=== PATIENT | male | born 2000 | race Caucasian/White ===

== ENCOUNTER 2020-06-20 12:26 | Emergency (ER) | payer OTHER ==
[2020-06-20 12:35] VITALS: RESP 18
--- NOTE | 2020-06-20 12:56 | ED ---
General Adult HPI - General Source: patient, family, RN notes reviewed, old records reviewed Mode of arrival: ambulatory Limitations: no limitations <Valentino Polanco - Last Filed: 06/20/20 14:37> <Matt Lynn - Last Filed: 06/20/20 17:00> - General Chief complaint: Psychiatric Symptoms Stated complaint: EPS eval Time Seen by Provider: 06/20/20 12:30 - History of Present Illness Initial comments: This is a 20-year-old male who presents emergency Department stating he is depressed and has been depressed for years. Patient states proximal that one year ago he stopped taking his antidepressants because he didn't like the way they made him feel. Patient states since that time he continues to be depressed and had suicidal thoughts. Patient states more recently the thoughts been more constant and eating worse so decided come in and get help. Patient denies any specific plan to try to harm himself. Patient denies any homicidal thoughts. Patient denies any drinking patient denies any drug use other than marijuana. Patient denies any physical complaints today. Patient denies any fever chills or cough per patient denies chest pain difficulty breathing shortest breath. Patient denies any abdominal pain patient denies nausea vomiting or diarrhea. (Valentino Polanco) - Related Data Home Medications Medication Instructions Recorded Confirmed No Known Home Medications 06/20/20 06/20/20 Allergies Allergy/AdvReac Type Severity Reaction Status Date / Time No Known Allergies Allergy Verified 06/20/20 13:39 Review of Systems ROS Other: All systems not noted in ROS Statement are negative. <Valentino Polanco - Last Filed: 06/20/20 14:37> ROS Other: All systems not noted in ROS Statement are negative. <Matt Lynn - Last Filed: 06/20/20 17:00> ROS Statement: Those systems with pertinent positive or pertinent negative responses have been documented in the HPI. Past Medical History Past Medical History: No Reported History History of Any Multi-Drug Resistant Organisms: None Reported Past Surgical History: Ear Surgery Past Psychological History: ADD/ADHD, Anxiety, Bipolar, Depression, PTSD, Schizophrenia Smoking Status: Current every day smoker Past Alcohol Use History: Rare Past Drug Use History: Marijuana <Valentino Polanco - Last Filed: 06/20/20 14:37> General Exam Limitations: no limitations <Valentino Polanco - Last Filed: 06/20/20 14:37> - General Exam Comments Initial Comments: GENERAL: Patient is well-developed and well-nourished. Patient is nontoxic and well- hydrated and is in mild distress. ENT: Neck is soft and supple. No significant lymphadenopathy is noted. Oropharynx is clear. Moist mucous membranes. Neck has full range of motion without eliciting any pain. EYES: The sclera were anicteric and conjunctiva were pink and moist. Extraocular movements were intact and pupils were equal round and reactive to light. Eyelids were unremarkable. PULMONARY: Unlabored respirations. Good breath sounds bilaterally. No audible rales rhonchi or wheezing was noted. CARDIOVASCULAR: There is a regular rate and rhythm without any murmurs gallops or rubs. ABDOMEN: Soft and nontender with normal bowel sounds. SKIN: Skin is clear with no lesions or rashes and otherwise unremarkable. NEUROLOGIC: Patient is alert and oriented x3. Cranial nerves II through XII are grossly intact. Motor and sensory are also intact. Normal speech, volume and content. Symmetrical smile. MUSCULOSKELETAL: Normal extremities with adequate strength and full range of motion. LYMPHATICS: No significant lymphadenopathy is noted PSYCHIATRIC: Patient states he is having suicidal thoughts and he is very depressed. (Valentino Polanco) Course Vital Signs 06/20/20 12:30 Temperature 98.8 F Pulse Rate 122 H Respiratory 18 Rate Blood Pressure 170/102 O2 Sat by Pulse 97 Oximetry Medical Decision Making <Valentino Polanco - Last Filed: 06/20/20 14:37> <Matt Lynn - Last Filed: 06/20/20 17:00> - Medical Decision Making Dr. Lynn with taking care of this patient at 3 PM (Valentino Ploanco) Patient care was signed out to me by Dr. Polanco. Briefly, patient is a 20-year-old male who resents with depression. He does feel suicidal. At sig nout plan was to follow-up with EPS recommendations. Patient was evaluated by EPS recommended inpatient admission. Certification was completed. Patient will be [facility] to [facility] inpatient [facility]ry [facility]. (Matt Lynn) - Lab Data Lab Results 06/20/20 06/20/20 Range/Units 13:08 13:08 Urine Color Yellow Urine Appearance Cloudy (Clear) Urine pH 6.0 (5.0-8.0) Ur Specific Atkins 1.018 (1.001-1.035) Urine Protein Trace H (Negative) Urine Glucose (UA) Negative (Negative) Urine Ketones 3+ H (Negative) Urine Blood Negative (Negative) Urine Nitrite Negative (Negative) Urine Bilirubin Negative (Negative) Urine Urobilinogen 2.0 (<2.0) mg/dL Ur Leukocyte Esterase Negative (Negative) Urine RBC <1 (0-5) /hpf Urine WBC 2 (0-5) /hpf Urine Bacteria Rare H (None) /hpf Urine Mucus Many H (None) /hpf Urine Opiates Screen Not Detected (NotDetected) Ur Oxycodone Screen Not Detected (NotDetected) Urine Methadone Screen Not Detected (NotDetected) Ur Propoxyphene Screen Not Detected (NotDetected) Ur Barbiturates Screen Not Detected (NotDetected) U Tricyclic Antidepress Not Detected (NotDetected) Ur Phencyclidine Scrn Not Detected (NotDetected) Ur Amphetamines Screen Not Detected (NotDetected) U Methamphetamines Scrn Not Detected (NotDetected) U Benzodiazepines Scrn Not Detected (NotDetected) Urine Cocaine Screen Not Detected (NotDetected) U Marijuana (THC) Screen Detected H (NotDetected) Disposition <Valentino Polanco - Last Filed: 06/20/20 14:37> Decision Time: 17:00 <Matt Lynn - Last Filed: 06/20/20 17:00> Clinical Impression: Suicidal ideation Disposition: ADMITTED IP TO THIS HOSP Condition: Fair Referrals: None,Stated [Primary Care Provider] - 1-2 days
[2020-06-20 13:28] LABS: Appearance,Urine Cloudy (Clear); Bacteria,Urine Rare /hpf; Bilirubin,Urine Negative (Negative); Blood,Urine Negative (Negative); Color,Urine Yellow; Glucose,Urine (UA) Negative (Negative); Ketones,Urine 3+ (Negative); Leukocyte Esterase,Urine Negative (Negative); Mucus,Urine Many /hpf; Nitrite,Urine Negative (Negative); Protein,Urine Trace (Negative); RBC,Urine <1 /hpf (0-5); Specific Gravity,Urine 1.018 (1.001-1.035); WBC,Urine 2 /hpf (0-5)
[2020-06-20 13:30] LABS: Amphetamine Screen,Urine Not Detected (NotDetected); Barbiturate Screen,Urine Not Detected (NotDetected); Benzodiazepines Screen,Urine Not Detected (NotDetected); Cocaine Screen,Urine Not Detected (NotDetected); Methadone Screen, Urine Not Detected (NotDetected); Opiate Screen,Urine Not Detected (NotDetected); Oxycodone Screen, Urine Not Detected (NotDetected); Phencyclidine Screen,Urine Not Detected (NotDetected); Tricyclic Antidepressant,Urine Not Detected (NotDetected); Urn Cannabinoid Scrn Detected (NotDetected)
[2020-06-20] MEDS ORDERED: NICOTINE 21MG/24HR PATCH TRANSDERM STA (15:06)
[2020-06-20 18:37] LABS: Basophils # (A) 0.2 k/uL (0-0.2); Basophils % (A) 2 %; Eosinophils # (A) 0.2 k/uL (0-0.7); Eosinophils % (A) 1 %; HCT 50.7 % (39.0-53.0); HGB 17.5 gm/dL (13.0-17.5); Lymphocytes # (A) 3.3 k/uL (1.0-4.8); Lymphocytes % (A) 31 %; MCH 32.4 pg (25.0-35.0); MCHC 34.5 g/dL (31.0-37.0); MCV 94.1 fL (80.0-100.0); Mean Platelet Volume 7.9; Monocytes # (A) 0.6 k/uL (0-1.0); Monocytes % (A) 5 %; Neutrophils # (A) 6.1 k/uL (1.3-7.7); Neutrophils % (A) 58 %; Platelet Count 224 k/uL (150-450); RBC 5.39 m/uL (4.30-5.90); RDW 12.3 % (11.5-15.5); WBC 10.5 k/uL (4.0-11.0)
[2020-06-20 18:46] LABS: ALT 14 U/L (4-49); AST 30 U/L (17-59); African American GFR (CKD) >90 (>60 ml/min/1.73 sqM); Albumin 5.2 g/dL (3.5-5.0); Alkaline Phosphatase 85 U/L (38-126); Anion Gap 11 mmol/L; Blood Urea Nitrogen 11 mg/dL (9-20); Calcium 10.1 mg/dL (8.4-10.2); Carbon Dioxide 24 mmol/L (22-30); Chloride 104 mmol/L (98-107); Glucose 95 mg/dL (74-99); Non-African American GFR(CKD) >90 (>60 ml/min/1.73 sqM); Potassium 4.4 mmol/L (3.5-5.1); Sodium 139 mmol/L (137-145); Total Protein 7.9 g/dL (6.3-8.2)
[2020-06-21] MEDS: NICOTINE POLACRILEX 2 MG GUM BUCCAL PRN ×2 (03:06→07:27)
[2020-06-21 04:02] VITALS: TEMP 98
[2020-06-21 06:54] VITALS: BP 118/82; PULSE 72
== END 2020-06-21 11:00 ==
LOC: EC 12:26
DX: R45.851 Suicidal ideations (principal); F32.9 Major depressive disorder, single episode, unspecified; F17.200 Nicotine dependence, unspecified, uncomplicated
CPT/HCPCS: 82075; 36415; 80053; 85025; 81001; 80306; 99285; S4990